=== PATIENT | male | born 1975 | race Caucasian/White ===

== ENCOUNTER 2016-08-23 20:58 | Emergency (ER) | payer OTHER ==
[2016-08-23] MEDS ORDERED: SODIUM CHLORIDE 0.9% 1,000 ML ONE (22:08)
[2016-08-23] MEDS ORDERED: KETOROLAC 30 MG/ML VIAL ONE (22:08)
[2016-08-23] MEDS ORDERED: ONDANSETRON 4 MG VIAL ONE (22:08)
== END 2016-08-23 23:21 | disposition home or self-care (01) ==
LOC: ER 20:58
DX: R10.31 Right lower quadrant pain (principal)
CPT/HCPCS: 36415; 74176; 80053; 81001; 83690; 85025; 96361; 96374; 96375